=== PATIENT | male | born 1970 | race Caucasian/White ===

== ENCOUNTER 2020-04-17 12:49 | Emergency (ER) | payer MEDICAID ==
[~2020-04-17] VITALS: Ht 180.3 cm; Wt 110.0 kg
[2020-04-17] MEDS ORDERED: PLEASE ENTER ALLERGIES MC SCH (13:30)
[2020-04-17] MEDS ORDERED: ACETAMINOPHEN 325 MG TABLET PO ONE (13:30)
[2020-04-17] MEDS ORDERED: ACETAMINOPHEN 500 MG TABLET PO ONE (13:30)
[2020-04-17 13:39] LABS: BASOPHILS # (AUTO) 0.03 x10^3/uL (0-0.1); BASOPHILS % (AUTO) 1 % (0-1); EOSINOPHILS # (AUTO) 0.05 x10^3/uL (0-0.4); EOSINOPHILS % (AUTO) 1 % (1-7); LYMPHOCYTES # (AUTO) 1.11 x10^3/uL (1-3.4); LYMPHOCYTES % (AUTO) 22 % (22-44); MD NO; MEAN CORPUSCULAR HEMOGLOBIN 29.6 pg (27.5-34.5); MEAN CORPUSCULAR HGB CONC 33.9 g/dL (33.2-36.2); MEAN CORPUSCULAR VOLUME 87.3 fL (81-97); MEAN PLATELET VOLUME 8.3 fL (7.4-10.4); MONOCYTES # (AUTO) 0.55 x10^3/uL (0.2-0.8); MONOCYTES % (AUTO) 11 % (2-9); NEUTROPHILS # (AUTO) 3.34 x10^3/uL (1.8-6.8); NEUTROPHILS % (AUTO) 66 % (42-75); PLATELET COUNT 189 x10^3/uL (130-400); RED BLOOD COUNT 5.03 x10^6/uL (4.38-5.82); RED CELL DISTRIBUTION WIDTH 12.3 % (9.4-14.8)
[2020-04-17 13:47] LABS: ALBUMIN 3.8 g/dL (3.4-5.0); ANION GAP 6 mmol/L (5-15); CALCIUM 9.1 mg/dL (8.5-10.1); CHLORIDE 107 mmol/L (98-107); CREATININE 0.97 mg/dL (0.7-1.3)
[2020-04-17 13:51] LABS: TROPONIN I < 0.015 ng/mL (0.000-0.045)
[2020-04-17 13:54] VITALS: BP 140/83
--- NOTE | 2020-04-17 13:57 | NUR ---
tylenol per nov. c/o do. at bedside. pt sts more thirsty than normal lately. last a1c check in november. deneis following diet/exercising. sr on monitor. vss. awaiting results. as
== END 2020-04-17 14:50 | disposition home or self-care (01) ==
LOC: ED 13:59
DX: U07.1 COVID-19 (principal); R42 Dizziness and giddiness; R51 Headache; I10 Essential (primary) hypertension; E11.9 Type 2 diabetes mellitus without complications; Z87.891 Personal history of nicotine dependence
CPT/HCPCS: 36415; 71045; 80048; 82040; 84484; 85025; 87635; 93005; 99285